=== PATIENT | male | born 1985 | race Caucasian/White ===

== ENCOUNTER 2018-02-14 13:45 | Emergency (ER) | payer BC ==
[~2018-02-14] VITALS: Ht 180.3 cm; Wt 102.0 kg
[2018-02-14 14:02] VITALS: Ht 180.3 cm; Wt 102.0 kg
[2018-02-14 14:31] VITALS: BP 143/81
== END 2018-02-14 14:31 | disposition home or self-care (01) ==
LOC: ED 13:45
DX: S91.332A Puncture wound without foreign body, left foot, initial encounter (principal); W22.8XXA Striking against or struck by other objects, initial encounter; Y93.89 Activity, other specified; Y92.89 Other specified places as the place of occurrence of the external cause; Y99.8 Other external cause status
CPT/HCPCS: 90715; Q0092